=== PATIENT | female | born 1990 | race Two or more races ===

== ENCOUNTER 2019-08-07 10:46 | Emergency (ER) | payer OTHER ==
[~2019-08-07] VITALS: Ht 167.6 cm; Wt 79.4 kg
[2019-08-07] MEDS ORDERED: ACETAMINOPHEN ES 500 MG TABLET PO ONE (11:00)
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
--- NOTE | 2019-08-07 11:02 | NUR ---
DR ANGUIANO AT BEDSIDE FOR EVAL.
--- NOTE | 2019-08-07 11:10 | NUR ---
called her , emile [phone]
[2019-08-07] MEDS ORDERED: ACETAMINOPHEN ES 500 MG TABLET ONE (11:17)
[2019-08-07 13:41] VITALS: BP 125/87
--- NOTE | 2019-08-07 13:41 | NUR ---
Patient discharged to home in stable condition. Written and verbal after care instructions given. Patient verbalizes understanding of instruction.
== END 2019-08-07 13:42 | disposition home or self-care (01) ==
LOC: ER 10:51
DX: S70.01XA Contusion of right hip, initial encounter (principal); S80.11XA Contusion of right lower leg, initial encounter; Z60.2 Problems related to living alone; V02.99XA Pedestrian with other conveyance injured in collision with two- or three-wheeled motor vehicle, unspecified whether traffic or nontraffic accident, initial encounter; Y93.89 Activity, other specified; Y92.413 State road as the place of occurrence of the external cause; Y99.8 Other external cause status
CPT/HCPCS: 72170-TC; 73552; 73590-TC